=== PATIENT | male | born 1970 | race Caucasian/White ===

== ENCOUNTER 2017-06-22 23:57 | Emergency (ER) | payer SELFPAY ==
[~2017-06-22] VITALS: Ht 167.6 cm; Wt 68.0 kg
[2017-06-23] MEDS ORDERED: SODIUM CHLORIDE 0.9% 1,000 ML IV ONE (00:24)
[2017-06-23] MEDS ORDERED: MORPHINE SULFATE 4 MG/ML CPJ (NOT FOR IM USE) IV STA (00:24)
[2017-06-23] MEDS ORDERED: ONDANSETRON HCL 4MG/2ML VIAL IV STA (00:24)
[2017-06-23 01:07] LABS: HEMATOCRIT. 36.7 % (42.0-52.0); HEMOGLOBIN. 12.5 g/dL (14.0-18.0); MEAN CORPUSCULAR HEMOGLOBIN 33.1 pg (28.0-32.0); MEAN CORPUSCULAR VOLUME 97.4 fL (80.0-94.0); MEAN PLATELET VOLUME 8.4 fl (7.4-10.4); PLATELET 93 x1000/uL (130-400); RED BLOOD CELL COUNT 3.77 mill/uL (4.7-6.1); RED CELL DISTRIBUTION WIDTH 15.2 % (11.6-14.6)
[2017-06-23 01:18] LABS: INR 1.6; PARTIAL THROMBOPLASTIN TIME 38.6 sec (23.4-31.0); PROTHROMBIN TIME 16.2 sec (9.4-11.6)
[2017-06-23 01:19] LABS: CHLORIDE 104 mEq/L (98-107)
[2017-06-23 01:24] LABS: TROPONIN I < 0.02 ng/mL (0.00-0.04)
[2017-06-23] MEDS ORDERED: IOHEXOL-300 100 ML BOTTLE ONE (02:10)
[2017-06-23] MEDS ORDERED: LEVOFLOXACIN 750MG PREMIX 150 ML IV ONE (02:15)
[2017-06-23] MEDS ORDERED: SODIUM CHLORIDE 0.9% 1000ML BAG (SEPSIS BOLUS) IV ONE (02:15)
[2017-06-23] MEDS ORDERED: HYDROMORPHONE HCL/PF 2MG/ML CPJ IV ONE (03:00)
[2017-06-23 03:16] LABS: PLATELET ESTIMATE DECREASED
[2017-06-23] MEDS ORDERED: ALBUTEROL (0.083%) 2.5MG/3ML NEB HHN STA (07:24)
[2017-06-23 11:16] VITALS: BP 117/79
== END 2017-06-23 11:29 | disposition short-term general hospital (02) ==
LOC: ER 23:57
DX: S12.600A Unspecified displaced fracture of seventh cervical vertebra, initial encounter for closed fracture (principal); S27.321A Contusion of lung, unilateral, initial encounter; A41.9 Sepsis, unspecified organism; R65.20 Severe sepsis without septic shock; R07.81 Pleurodynia; M25.511 Pain in right shoulder; R51 Headache; J69.0 Pneumonitis due to inhalation of food and vomit; W11.XXXA Fall on and from ladder, initial encounter; Y93.89 Activity, other specified; Y92.89 Other specified places as the place of occurrence of the external cause; Y99.8 Other external cause status
CPT/HCPCS: 36415; 70450; 71045; 71260; 72070; 72100; 72125; 73030; 80053; 83605; 84484; 85025; 85610; 85730; 86850; 86900; 86901; 87040; 93005; 94640; 96361; 96365; 96375; 99291; J1170; J1956; J2270; J2405; J7030; J7611; Q9967; Z7610

== ENCOUNTER 2021-03-08 16:26 | Inpatient (IN) | payer MEDICAID, OTHER ==
[~2021-03-08] VITALS: Ht 170.2 cm; Wt 74.8 kg
[~2021-03-08 16:26] MED LIST: FOLI-43 PO; FURO-151 MT; SPIR100T5 MT; THIA100T72 PO
[2021-03-08 18:22] LABS: BASOPHILS % 1.2 % (0.0-2.0); EOSINOPHILS % 7.9 % (0.0-5.0); HEMATOCRIT. 31.3 % (42.0-52.0); HEMOGLOBIN. 10.5 g/dL (14.0-18.0); LYMPHOCYTES % 25.8 % (20.0-50.0); MEAN CORPUSCULAR HEMOGLOBIN 33.8 pg (28.0-32.0); MEAN PLATELET VOLUME 7.4 fl (7.4-10.4); MONOCYTES % 14.5 % (2.0-8.0); NEUTROPHILS % 50.6 % (40.0-76.0); PLATELET 190 x1000/uL (130-400); RED CELL DISTRIBUTION WIDTH 15.3 % (11.6-14.6)
[2021-03-08 18:29] LABS: CHLORIDE 108 mEq/L (98-107)
[2021-03-08 18:39] LABS: INR 1.3; PROTHROMBIN TIME 13.3 sec (9.6-11.0)
[2021-03-08] MEDS ORDERED: KETOROLAC 30MG/ML VIAL IV STA (19:24)
[2021-03-08] MEDS ORDERED: MORPHINE SULFATE 4 MG/ML CPJ (NOT FOR IM USE) IV ONE (23:00)
[2021-03-09 00:52] LABS: CLARITY URINE CLOUDY (CLEAR); COLOR URINE ORANGE (YELLOW); KETONES URINE NEGATIVE (NEGATIVE); LEUKOCYTE ESTERASE URINE 1+ (NEGATIVE); NITRITE URINE POSITIVE (NEGATIVE); OCCULT BLOOD URINE 3+ (NEGATIVE); PH URINE 5.5 (4.5-8.0); PROTEIN URINE 1+ (NEGATIVE); SPECIFIC GRAVITY URINE 1.037 (1.005-1.030)
[2021-03-09 10:00] VITALS: BP 127/89
[2021-03-09] MEDS ORDERED: ACETAMINOPHEN 325MG TABLET PO PRN (10:15)
[2021-03-09] MEDS ORDERED: CEFTRIAXONE 1 G PREMIX 50 ML IV SCH (10:15)
[2021-03-09] MEDS ORDERED: ONDANSETRON HCL 4MG/2ML INJ IV PRN (10:15)
[2021-03-09] MEDS ORDERED: LIDOCAINE HCL 1% 10 MG/ML 10ML VIAL ONE (10:49)
[2021-03-09] MEDS ORDERED: SODIUM BICARBONATE 4% (2.4MEQ) 5ML VIAL IV ONE (10:50)
[2021-03-09 13:00] VITALS: BP 102/62
[2021-03-09] MEDS: CEFTRIAXONE 1,000 MG in DEXTROSE 5% WATER 50 ML IV SCH (14:05)
[2021-03-09 16:00] VITALS: BP 104/64
[2021-03-09 20:00] VITALS: BP 100/56
[2021-03-10] VITALS (7 sets, daily range): BP systolic 104–120; BP diastolic 65–81
[2021-03-10] MEDS ORDERED: FURO-151 MT (11:46)
[2021-03-10] MEDS ORDERED: LEVO500T89 MT (11:47)
[2021-03-10] MEDS ORDERED: SPIR100T5 MT (11:47)
[2021-03-10] MEDS: CEFTRIAXONE 1,000 MG in DEXTROSE 5% WATER 50 ML IV SCH (12:52)
[2021-03-10 13:55] LABS: HEMATOCRIT. 33.3 % (42.0-52.0); HEMOGLOBIN. 11.1 g/dL (14.0-18.0); MEAN CORPUSCULAR HEMOGLOBIN 33.6 pg (28.0-32.0); MEAN CORPUSCULAR VOLUME 100.7 fL (80.0-94.0); MEAN PLATELET VOLUME 7.6 fl (7.4-10.4); PLATELET 163 x1000/uL (130-400); RED BLOOD CELL COUNT 3.31 mill/uL (4.7-6.1)
[2021-03-10 14:01] LABS: CHLORIDE 107 mEq/L (98-107)
[2021-03-10 14:15] LABS: PLATELET ESTIMATE NORMAL
[2021-03-11] VITALS: BP 103/61
[2021-03-11 04:00] VITALS: BP 115/80
[2021-03-11 08:00] VITALS: BP 117/76
== END 2021-03-11 10:28 | disposition home or self-care (01) | DRG 720 ==
LOC: ER 16:26 → 6EST 21:19 → ENRESERV 03-09 07:39
PROVIDERS: ADMIT Internal Medicine; ATTEND Internal Medicine
PROC: 0W9G3ZZ Drainage of Peritoneal Cavity, Percutaneous Approach (ICD-10-PCS; principal; 2021-03-09)
DX: A41.9 Sepsis, unspecified organism (principal); E43 Unspecified severe protein-calorie malnutrition; R18.8 Other ascites; N39.0 Urinary tract infection, site not specified; E87.8 Other disorders of electrolyte and fluid balance, not elsewhere classified; I50.9 Heart failure, unspecified; E87.1 Hypo-osmolality and hyponatremia; E11.9 Type 2 diabetes mellitus without complications; D64.9 Anemia, unspecified; K74.60 Unspecified cirrhosis of liver; Z20.822 Contact with and (suspected) exposure to COVID-19; Z68.25 Body mass index [BMI] 25.0-25.9, adult; Z79.899 Other long term (current) drug therapy
CPT/HCPCS: 36415; 49083; 74176; 80048; 80053; 81003; 85025; 87426; 93005; 99285; J0696; J2270; J3490; J7060

== ENCOUNTER 2021-06-13 17:59 | Inpatient (IN) | payer OTHER ==
[~2021-06-13] VITALS: Ht 167.6 cm; Wt 64.4 kg
[2021-06-13] MEDS ORDERED: PIPERACILLIN/TAZ 3.375G PREMIX 50 ML IV ONE (19:45)
[2021-06-13] MEDS ORDERED: SODIUM CHLORIDE 0.9% 1000ML BAG (SEPSIS BOLUS) IV ONE (19:45)
[2021-06-13] MEDS ORDERED: VANCOMYCIN 1G PREMIX 200 ML IV ONE (19:45)
[2021-06-13 19:58] LABS: INR 1.8; PROTHROMBIN TIME 18.6 sec (9.6-11.0)
[2021-06-13 20:05] LABS: CHLORIDE 95 mEq/L (98-107)
[2021-06-13 20:09] LABS: ETHANOL BLOOD < 10 mg/dL
[2021-06-13 20:13] LABS: HEMATOCRIT. 34.1 % (42.0-52.0); HEMOGLOBIN. 11.5 g/dL (14.0-18.0); MEAN CORPUSCULAR HEMOGLOBIN 30.5 pg (28.0-32.0); MEAN CORPUSCULAR VOLUME 90.4 fL (80.0-94.0); MEAN PLATELET VOLUME 8.1 fl (7.4-10.4); PLATELET 191 x1000/uL (130-400); RED BLOOD CELL COUNT 3.77 mill/uL (4.7-6.1); RED CELL DISTRIBUTION WIDTH 17.9 % (11.6-14.6)
[2021-06-13] MEDS ORDERED: LORAZEPAM 2MG/ML CPJ IV ONE (20:45)
[2021-06-13] MEDS ORDERED: HALOPERIDOL LACTATE 5MG/ML VIAL IM ONE (21:15)
[2021-06-13] MEDS ORDERED: LACTULOSE 300 ML in WATER FOR IRRIGATION,STERILE 700 ML IR ONE (21:15)
[2021-06-13] MEDS ORDERED: DIPHENHYDRAMINE 50MG/ML VIAL IV ONE (21:15)
[2021-06-13 21:52] LABS: PLATELET ESTIMATE NORMAL
[2021-06-13] MEDS ORDERED: NOREPINEPHRINE 8 MG in DEXT 5% WATER 242 ML IV PRN (22:45)
[2021-06-13] MEDS ORDERED: IOHEXOL-300 100 ML BOTTLE ONE (22:45)
[2021-06-13] MEDS ORDERED: ALBUMIN HUMAN 12.5GM/50ML (25%) IV ONE (23:30)
[2021-06-14] VITALS (13 sets, daily range): BP systolic 61–106; BP diastolic 43–77
[2021-06-14] MEDS ORDERED: VANCOMYCIN 1GM PMX (XELLIA) 200 ML IV NR (00:15)
[2021-06-14] MEDS ORDERED: NOREPINEPHRINE 8 MG in DEXT 5% WATER 242 ML IV PRN (00:15)
[2021-06-14] MEDS ORDERED: VECURONIUM BROMIDE 10 MG/VIAL IV ONE (08:03)
[2021-06-14] MEDS ORDERED: ETOMIDATE 2MG/ML 10ML VIAL IV ONE ×2 (08:03→14:45)
[2021-06-14] MEDS ORDERED: ONDANSETRON HCL 4MG/2ML INJ IV PRN (08:45)
[2021-06-14] MEDS ORDERED: ACETAMINOPHEN 325MG TABLET PO PRN (08:45)
[2021-06-14] MEDS ORDERED: SODIUM CHLORIDE 0.9% 1,000 ML IV SCH (08:45)
[2021-06-14] MEDS ORDERED: NOREPINEPHRINE 8MG/250ML PMX 250 ML IV PRN (09:15)
[2021-06-14] MEDS ORDERED: SODIUM BICARBONATE 4% (2.4MEQ) 5ML VIAL IV ONE (09:51)
[2021-06-14] MEDS ORDERED: LIDOCAINE HCL 1% 20ML VIAL (Pyxis) INJ ONE (09:51)
[2021-06-14] MEDS ORDERED: DEXTROSE 50% WATER 50ML SYRINGE IV ONE (09:57)
[2021-06-14] MEDS ORDERED: DEXTROSE 50% WATER 50ML SYRINGE IV PRN ×2 (10:00)
[2021-06-14] MEDS: DEXT 5%/0.9% NACL 1,000 ML IV SCH (10:00)
[2021-06-14 10:24] LABS: BG BASE EXCESS -4.5 mmol/L (-2.0-2.0); BG CARBOXYHEMOGLOBIN 0.3 % (0.5-1.5); BG DEOXYHEMOGLOBIN 0.6 % (0.0-5.0); BG HCO3 ACT 18.1 mmol/L (22.0-26.0); BG METHEMOGLOBIN 0.4 % (0.0-1.5); BG OXYGEN SATURATION 99.4 % (92.0-98.5); BG OXYHEMOGLOBIN 98.7 % (94.0-97.0); BG PO2 245.6 mmHg (75.0-100.0); BG SAMPLE SITE RIGHT RADIAL; BG TOTAL HEMOGLOBIN 11.2 g/dL (12.0-18.0); BG VENT MODE MASK - NRB
[2021-06-14] MEDS ORDERED: LACTULOSE 300 ML in WATER FOR IRRIGATION,STERILE 700 ML IR SCH (10:30)
[2021-06-14] MEDS: BLOOD SUGAR DIAGNOSTIC STRIP TEST SCH ×2 (11:30→21:00)
[2021-06-14] MEDS ORDERED: LACTULOSE 20G/30ML UDC PO SCH (14:00)
[2021-06-14] MEDS ORDERED: FENTANYL CITRATE/PF 2,500 MCG in SODIUM CHLORIDE 0.9% 200 ML IV PRN (14:45)
[2021-06-14] MEDS ORDERED: ROCURONIUM BROMIDE 10MG/ML VIAL 5ML IV NR (14:45)
[2021-06-14] MEDS ORDERED: SODIUM CHLORIDE 0.9% 1,000 ML IV ONE (14:45)
[2021-06-14] MEDS ORDERED: FENTANYL 2500MCG/250ML PMX 250 ML IV PRN (14:51)
[2021-06-14 15:44] LABS: BG BASE EXCESS -7.7 mmol/L (-2.0-2.0); BG DEOXYHEMOGLOBIN 0.3 % (0.0-5.0); BG HCO3 ACT 17.3 mmol/L (22.0-26.0); BG METHEMOGLOBIN 0.4 % (0.0-1.5); BG OXYGEN SATURATION 99.7 % (92.0-98.5); BG OXYHEMOGLOBIN 99.3 % (94.0-97.0); BG PCO2 33.6 mmHg (35.0-45.0); BG PO2 361.3 mmHg (75.0-100.0); BG SAMPLE SITE RIGHT RADIAL; BG TOTAL HEMOGLOBIN 12.4 g/dL (12.0-18.0); BG VENT MODE VENT - AC
[2021-06-14] MEDS: PIPERACILLIN/TAZOBACTAM 3.375 G in DEXTROSE 5% WATER 50 ML IV SCH ×2 (16:00→22:00)
[2021-06-14] MEDS: PROPOFOL 10MG/ML 100ML 100 ML IV PRN (16:24)
[2021-06-14] MEDS: NOREPINEPHRINE 8 MG in DEXT 5% WATER 242 ML IV PRN (23:48)
[2021-06-14] MEDS: LACTULOSE 20G/30ML UDC PO SCH (23:53)
[2021-06-14] MEDS: RIFAXIMIN 550 MG TABLET PO SCH (23:53)
[2021-06-15] VITALS (70 sets, daily range): BP systolic 62–147; BP diastolic 40–95
[2021-06-15] MEDS ORDERED: PROPOFOL 10MG/ML 100ML 100 ML IV PRN
[2021-06-15] MEDS ORDERED: FENTANYL 2500MCG/250ML PMX 250 ML IV PRN
[2021-06-15 00:58] LABS: BG FRACTION INSPIRED OXYGEN 60; BG SAMPLE SITE RIGHT BRACHIAL; BG VENT MODE VENT - AC
[2021-06-15 01:03] LABS: BG BASE EXCESS -7.2 mmol/L (-2.0-2.0); BG HCO3 ACT 17.2 mmol/L (22.0-26.0); BG PCO2 31.4 mmHg (35.0-45.0); BG PH 7.357 (7.350-7.450); BG PO2 134.8 mmHg (75.0-100.0)
[2021-06-15 01:04] LABS: BG CARBOXYHEMOGLOBIN 0.3 % (0.5-1.5); BG METHEMOGLOBIN 0.4 % (0.0-1.5); BG OXYGEN SATURATION 98.5 % (92.0-98.5); BG OXYHEMOGLOBIN 97.8 % (94.0-97.0); BG TOTAL HEMOGLOBIN 12.3 g/dL (12.0-18.0)
[2021-06-15 01:05] LABS: BG DEOXYHEMOGLOBIN 1.5 % (0.0-5.0)
[2021-06-15] MEDS: NOREPINEPHRINE 8 MG in DEXT 5% WATER 242 ML IV PRN ×3 (02:40→08:30)
[2021-06-15] MEDS: PROPOFOL 10MG/ML 100ML 100 ML IV PRN (03:50)
[2021-06-15 05:10] LABS: CLARITY URINE CLEAR (CLEAR); COLOR URINE DARK YELLOW (YELLOW); KETONES URINE NEGATIVE (NEGATIVE); LEUKOCYTE ESTERASE URINE 1+ (NEGATIVE); NITRITE URINE NEGATIVE (NEGATIVE); OCCULT BLOOD URINE 2+ (NEGATIVE); PROTEIN URINE NEGATIVE (NEGATIVE); SPECIFIC GRAVITY URINE 1.035 (1.005-1.030)
[2021-06-15 05:48] LABS: HEMATOCRIT. 34.1 % (42.0-52.0); HEMOGLOBIN. 11.3 g/dL (14.0-18.0); MEAN CORPUSCULAR HEMOGLOBIN 30.7 pg (28.0-32.0); MEAN CORPUSCULAR VOLUME 92.6 fL (80.0-94.0); MEAN PLATELET VOLUME 7.4 fl (7.4-10.4); PLATELET 198 x1000/uL (130-400); RED BLOOD CELL COUNT 3.68 mill/uL (4.7-6.1); RED CELL DISTRIBUTION WIDTH 17.7 % (11.6-14.6)
[2021-06-15] MEDS: DEXT 5%/0.9% NACL 1,000 ML IV SCH (06:00)
[2021-06-15] MEDS: LACTULOSE 20G/30ML UDC PO SCH ×3 (06:22→22:12)
[2021-06-15] MEDS: BLOOD SUGAR DIAGNOSTIC STRIP TEST SCH ×4 (06:27→20:01)
[2021-06-15 08:02] LABS: PLATELET ESTIMATE NORMAL
[2021-06-15] MEDS: PIPERACILLIN/TAZOBACTAM 3.375 G in DEXTROSE 5% WATER 50 ML IV SCH ×3 (08:30→22:12)
[2021-06-15 08:58] LABS: BG BASE EXCESS -6.5 mmol/L (-2.0-2.0); BG CARBOXYHEMOGLOBIN 0.6 % (0.5-1.5); BG DEOXYHEMOGLOBIN 1.2 % (0.0-5.0); BG METHEMOGLOBIN 0.4 % (0.0-1.5); BG OXYGEN SATURATION 98.8 % (92.0-98.5); BG OXYHEMOGLOBIN 97.8 % (94.0-97.0); BG PCO2 32.9 mmHg (35.0-45.0); BG PH 7.357 (7.350-7.450); BG PO2 133.6 mmHg (75.0-100.0); BG SAMPLE SITE RIGHT BRACHIAL; BG TOTAL HEMOGLOBIN 12.5 g/dL (12.0-18.0); BG VENT MODE VENT - AC
[2021-06-15] MEDS ORDERED: PHENYLEPHRINE 50 MG in DEXT 5% WATER 245 ML IV PRN (09:00)
[2021-06-15] MEDS: RIFAXIMIN 550 MG TABLET PO SCH ×2 (09:19→20:01)
[2021-06-15] MEDS: NOREPINEPHRINE 32 MG in DEXT 5% WATER 218 ML IV PRN ×2 (11:22→22:23)
[2021-06-15] MEDS ORDERED: VANCOMYCIN 1250MG in DEXTROSE 5% WATER 250ML IV NR (12:00)
[2021-06-15] MEDS ORDERED: VANCOMYCIN 1.25GM PMX (XELLIA) 250 ML IV NR (12:00)
[2021-06-15] MEDS: FOLIC ACID 1MG TABLET PO SCH (14:22)
[2021-06-16] VITALS (94 sets, daily range): BP systolic 73–161; BP diastolic 27–107
[2021-06-16] MEDS: DEXT 5%/0.9% NACL 1,000 ML IV SCH ×2 (02:31→22:00)
[2021-06-16 06:15] LABS: CHLORIDE 102 mEq/L (98-107)
[2021-06-16] MEDS: BLOOD SUGAR DIAGNOSTIC STRIP TEST SCH ×4 (07:17→21:13)
[2021-06-16] MEDS: LACTULOSE 20G/30ML UDC PO SCH ×3 (07:17→21:14)
[2021-06-16] MEDS: PIPERACILLIN/TAZOBACTAM 3.375 G in DEXTROSE 5% WATER 50 ML IV SCH ×3 (07:17→21:15)
[2021-06-16] MEDS: RIFAXIMIN 550 MG TABLET PO SCH ×2 (08:10→21:14)
[2021-06-16] MEDS: THIAMINE HCL 100 MG/1 ML 2ML VIAL IM SCH (08:10)
[2021-06-16] MEDS: FOLIC ACID 1MG TABLET PO SCH (08:10)
[2021-06-16] MEDS: NOREPINEPHRINE 32 MG in DEXT 5% WATER 218 ML IV PRN ×2 (08:16→18:31)
[2021-06-16] MEDS ORDERED: FOLIC ACID 1MG TABLET PO SCH (09:00)
[2021-06-16 09:20] LABS: BG BASE EXCESS -4.1 mmol/L (-2.0-2.0); BG CARBOXYHEMOGLOBIN 0.3 % (0.5-1.5); BG FRACTION INSPIRED OXYGEN 50; BG HCO3 ACT 19.2 mmol/L (22.0-26.0); BG METHEMOGLOBIN 0.3 % (0.0-1.5); BG OXYHEMOGLOBIN 97.4 % (94.0-97.0); BG PCO2 30.1 mmHg (35.0-45.0); BG PH 7.422 (7.350-7.450); BG SAMPLE SITE LEFT BRACHIAL; BG TOTAL HEMOGLOBIN 12.8 g/dL (12.0-18.0); BG VENT MODE VENT - AC
[2021-06-16] MEDS ORDERED: VANCOMYCIN 1.25GM PMX (XELLIA) 250 ML IV SCH (12:00)
[2021-06-16] MEDS ORDERED: PROPOFOL 10MG/ML 100ML 100 ML IV PRN (12:30)
[2021-06-17] VITALS (97 sets, daily range): BP systolic 73–132; BP diastolic 44–88
[2021-06-17] MEDS: CEFAZOLIN 2,000 MG in DEXT 5% WATER 100 ML IV SCH ×4 (00:49→21:07)
[2021-06-17] MEDS: BLOOD SUGAR DIAGNOSTIC STRIP TEST SCH ×4 (05:43→20:15)
[2021-06-17] MEDS: LACTULOSE 20G/30ML UDC PO SCH ×3 (05:44→21:07)
[2021-06-17] MEDS: NOREPINEPHRINE 32 MG in DEXT 5% WATER 218 ML IV PRN ×2 (05:45→21:40)
[2021-06-17 06:12] LABS: CHLORIDE 104 mEq/L (98-107)
[2021-06-17 07:54] LABS: BG BASE EXCESS -1.2 mmol/L (-2.0-2.0); BG CARBOXYHEMOGLOBIN 0.4 % (0.5-1.5); BG DEOXYHEMOGLOBIN 1.3 % (0.0-5.0); BG HCO3 ACT 22.7 mmol/L (22.0-26.0); BG METHEMOGLOBIN 0.2 % (0.0-1.5); BG OXYGEN SATURATION 98.7 % (92.0-98.5); BG OXYHEMOGLOBIN 98.1 % (94.0-97.0); BG PCO2 35.2 mmHg (35.0-45.0); BG PH 7.427 (7.350-7.450); BG SAMPLE SITE RIGHT BRACHIAL; BG TOTAL HEMOGLOBIN 12.6 g/dL (12.0-18.0); BG VENT MODE VENT - AC
[2021-06-17] MEDS: RIFAXIMIN 550 MG TABLET PO SCH ×2 (08:41→21:07)
[2021-06-17] MEDS: FOLIC ACID 1MG TABLET PO SCH (08:41)
[2021-06-17] MEDS: THIAMINE HCL 100 MG/1 ML 2ML VIAL IM SCH (08:51)
[2021-06-17 09:33] LABS: HEMATOCRIT. 37.1 % (42.0-52.0); HEMOGLOBIN. 12.4 g/dL (14.0-18.0); MEAN CORPUSCULAR HEMOGLOBIN 30.7 pg (28.0-32.0); MEAN CORPUSCULAR VOLUME 91.9 fL (80.0-94.0); MEAN PLATELET VOLUME 7.3 fl (7.4-10.4); RED BLOOD CELL COUNT 4.04 mill/uL (4.7-6.1); RED CELL DISTRIBUTION WIDTH 17.1 % (11.6-14.6)
[2021-06-17 09:43] LABS: PLATELET 51 x1000/uL (130-400)
[2021-06-17 12:58] LABS: PLATELET ESTIMATE DECREASED
[2021-06-17] MEDS ORDERED: LIDOCAINE HCL 1% 10 MG/ML 10ML VIAL ONE (13:54)
[2021-06-17] MEDS: PANTOPRAZOLE SODIUM 40 MG/VIAL IV SCH (16:55)
[2021-06-17] MEDS: DEXT 5%/0.9% NACL 1,000 ML IV SCH ×2 (18:00→23:32)
[2021-06-17] MEDS: FENTANYL CITRATE 2,500 MCG in SODIUM CHLORIDE 0.9% 200 ML IV PRN (18:26)
[2021-06-18] VITALS (79 sets, daily range): BP systolic 74–129; BP diastolic 50–92
[2021-06-18] MEDS: LACTULOSE 20G/30ML UDC PO SCH ×3 (05:10→22:34)
[2021-06-18] MEDS: CEFAZOLIN 2,000 MG in DEXT 5% WATER 100 ML IV SCH ×3 (05:10→22:33)
[2021-06-18 05:25] LABS: HEMATOCRIT. 38.8 % (42.0-52.0); HEMOGLOBIN. 13.3 g/dL (14.0-18.0); MEAN CORPUSCULAR HEMOGLOBIN 31.3 pg (28.0-32.0); MEAN CORPUSCULAR VOLUME 91.5 fL (80.0-94.0); RED BLOOD CELL COUNT 4.24 mill/uL (4.7-6.1); RED CELL DISTRIBUTION WIDTH 17.1 % (11.6-14.6)
[2021-06-18 05:39] LABS: CHLORIDE 102 mEq/L (98-107)
[2021-06-18] MEDS: BLOOD SUGAR DIAGNOSTIC STRIP TEST SCH ×4 (06:31→21:00)
[2021-06-18] MEDS: RIFAXIMIN 550 MG TABLET PO SCH ×2 (08:42→22:33)
[2021-06-18] MEDS: FOLIC ACID 1MG TABLET PO SCH (08:42)
[2021-06-18] MEDS: THIAMINE HCL 100 MG/1 ML 2ML VIAL IM SCH (08:42)
[2021-06-18] MEDS: PANTOPRAZOLE SODIUM 40 MG/VIAL IV SCH (08:42)
[2021-06-18 09:40] LABS: BG BASE EXCESS -1.5 mmol/L (-2.0-2.0); BG CARBOXYHEMOGLOBIN 0.8 % (0.5-1.5); BG DEOXYHEMOGLOBIN 2.7 % (0.0-5.0); BG FRACTION INSPIRED OXYGEN 35; BG HCO3 ACT 22.8 mmol/L (22.0-26.0); BG METHEMOGLOBIN 0.2 % (0.0-1.5); BG OXYGEN SATURATION 97.3 % (92.0-98.5); BG OXYHEMOGLOBIN 96.3 % (94.0-97.0); BG PCO2 37.2 mmHg (35.0-45.0); BG PH 7.406 (7.350-7.450); BG PO2 91.7 mmHg (75.0-100.0); BG SAMPLE SITE RIGHT RADIAL; BG TOTAL HEMOGLOBIN 13.4 g/dL (12.0-18.0); BG TOTAL RESPIRATORY RATE 18 b/min; BG VENT MODE VENT - AC
[2021-06-18 11:21] LABS: PLATELET 40 x1000/uL (130-400)
[2021-06-18 11:25] LABS: PLATELET ESTIMATE MARKEDLY DECREASED
[2021-06-18] MEDS: FENTANYL CITRATE 2,500 MCG in SODIUM CHLORIDE 0.9% 200 ML IV PRN (13:05)
[2021-06-18] MEDS ORDERED: LACTULOSE 300 ML in WATER FOR IRRIGATION,STERILE 700 ML IR SCH (14:00)
[2021-06-18] MEDS: NOREPINEPHRINE 32 MG in DEXT 5% WATER 218 ML IV PRN (14:05)
[2021-06-19] VITALS (51 sets, daily range): BP systolic 57–211; BP diastolic 36–164
[2021-06-19] MEDS: FENTANYL CITRATE 2,500 MCG in SODIUM CHLORIDE 0.9% 200 ML IV PRN (00:26)
[2021-06-19] MEDS: PHENYLEPHRINE 100 MG in DEXT 5% WATER 240 ML IV PRN ×6 (05:17→22:03)
[2021-06-19] MEDS: NOREPINEPHRINE 32 MG in DEXT 5% WATER 218 ML IV PRN ×3 (05:19→20:50)
[2021-06-19] MEDS: VASOPRESSIN 20 UNIT in SODIUM CHLORIDE 0.9% 99 ML IV PRN ×3 (05:39→18:57)
[2021-06-19] MEDS: LACTULOSE 20G/30ML UDC PO SCH ×3 (06:00→22:00)
[2021-06-19] MEDS: BLOOD SUGAR DIAGNOSTIC STRIP TEST SCH ×4 (06:30→21:00)
[2021-06-19 06:33] LABS: BG BASE EXCESS -7.4 mmol/L (-2.0-2.0); BG CARBOXYHEMOGLOBIN 0.3 % (0.5-1.5); BG FRACTION INSPIRED OXYGEN 100; BG HCO3 ACT 18.2 mmol/L (22.0-26.0); BG METHEMOGLOBIN 0.2 % (0.0-1.5); BG OXYHEMOGLOBIN 95.5 % (94.0-97.0); BG PCO2 37.3 mmHg (35.0-45.0); BG PH 7.306 (7.350-7.450); BG SAMPLE SITE RIGHT BRACHIAL; BG TOTAL HEMOGLOBIN 14.7 g/dL (12.0-18.0); BG VENT MODE VENT - AC
[2021-06-19] MEDS ORDERED: LIDOCAINE HCL 1% 10 MG/ML 10ML VIAL ONE (08:02)
[2021-06-19] MEDS: PANTOPRAZOLE SODIUM 40 MG/VIAL IV SCH (08:34)
[2021-06-19] MEDS: RIFAXIMIN 550 MG TABLET PO SCH ×2 (08:34→21:00)
[2021-06-19] MEDS: FOLIC ACID 1MG TABLET PO SCH (08:39)
[2021-06-19] MEDS: THIAMINE HCL 100 MG/1 ML 2ML VIAL IM SCH (08:39)
[2021-06-19] MEDS: CEFAZOLIN 2,000 MG in DEXT 5% WATER 100 ML IV SCH ×2 (13:26→22:02)
[2021-06-19 14:08] LABS: HEMATOCRIT. 39.1 % (42.0-52.0); HEMOGLOBIN. 12.4 g/dL (14.0-18.0); MEAN CORPUSCULAR HEMOGLOBIN 30.3 pg (28.0-32.0); MEAN CORPUSCULAR VOLUME 95.4 fL (80.0-94.0); MEAN PLATELET VOLUME 10.5 fl (7.4-10.4); RED CELL DISTRIBUTION WIDTH 17.8 % (11.6-14.6)
[2021-06-19 14:14] LABS: PLATELET 27 x1000/uL (130-400)
[2021-06-19 14:43] LABS: PLATELET ESTIMATE MARKEDLY DECREASED
[2021-06-20] VITALS (24 sets, daily range): BP systolic 33–90; BP diastolic 16–51
[2021-06-20] MEDS: PHENYLEPHRINE 100 MG in DEXT 5% WATER 240 ML IV PRN ×2 (03:44→08:13)
[2021-06-20] MEDS ORDERED: LORAZEPAM 2MG/ML CPJ IV PRN ×2 (03:45→04:30)
[2021-06-20] MEDS: NOREPINEPHRINE 32 MG in DEXT 5% WATER 218 ML IV PRN ×2 (03:55→11:13)
[2021-06-20] MEDS: VASOPRESSIN 20 UNIT in SODIUM CHLORIDE 0.9% 99 ML IV PRN ×2 (04:16→11:14)
[2021-06-20] MEDS: LACTULOSE 20G/30ML UDC PO SCH (06:00)
[2021-06-20] MEDS: CEFAZOLIN 2,000 MG in DEXT 5% WATER 100 ML IV SCH ×2 (06:26→13:07)
[2021-06-20] MEDS: BLOOD SUGAR DIAGNOSTIC STRIP TEST SCH ×2 (06:26→12:09)
[2021-06-20] MEDS: DEXT 5%/0.9% NACL 1,000 ML IV SCH (06:27)
[2021-06-20] MEDS ORDERED: DEXTROSE 50% WATER 50ML SYRINGE IV ONE (06:42)
[2021-06-20] MEDS: FOLIC ACID 1MG TABLET PO SCH (08:33)
[2021-06-20] MEDS: PANTOPRAZOLE SODIUM 40 MG/VIAL IV SCH (08:33)
[2021-06-20] MEDS: THIAMINE HCL 100 MG/1 ML 2ML VIAL IM SCH (08:34)
[2021-06-20] MEDS ORDERED: CEFAZOLIN 2,000 MG in DEXT 5% WATER 100 ML IV SCH (21:00)
== END 2021-06-20 18:29 | DRG 710 ==
LOC: ER 17:59 → MICUSO 21:10 → EDBEDREQTM 21:15 → EDBEDREQ 21:15 → EDBEDREQSVC 21:15 → EDBEDREQTM 23:00 → MICUSO 06-14 20:30
PROVIDERS: ADMIT Internal Medicine; ATTEND Internal Medicine
PROC: 0BH17EZ Insertion of Endotracheal Airway into Trachea, Via Natural or Artificial Opening (ICD-10-PCS; principal; 2021-06-14)
PROC: 5A1955Z Respiratory Ventilation, Greater than 96 Consecutive Hours (ICD-10-PCS; 2021-06-14)
PROC: 02HV33Z Insertion of Infusion Device into Superior Vena Cava, Percutaneous Approach (ICD-10-PCS; 2021-06-17)
PROC: B548ZZA Ultrasonography of Superior Vena Cava, Guidance (ICD-10-PCS; 2021-06-17)
PROC: 0WPG30Z Removal of Drainage Device from Peritoneal Cavity, Percutaneous Approach (ICD-10-PCS; 2021-06-19)
DX: A41.01 Sepsis due to Methicillin susceptible Staphylococcus aureus (principal); J96.01 Acute respiratory failure with hypoxia; R65.21 Severe sepsis with septic shock; J69.0 Pneumonitis due to inhalation of food and vomit; G93.41 Metabolic encephalopathy; E43 Unspecified severe protein-calorie malnutrition; R64 Cachexia; K65.9 Peritonitis, unspecified; A41.89 Other specified sepsis; D68.9 Coagulation defect, unspecified; R18.8 Other ascites; D69.6 Thrombocytopenia, unspecified; E11.649 Type 2 diabetes mellitus with hypoglycemia without coma; D50.9 Iron deficiency anemia, unspecified; D63.8 Anemia in other chronic diseases classified elsewhere; E87.1 Hypo-osmolality and hyponatremia; E87.5 Hyperkalemia; E87.8 Other disorders of electrolyte and fluid balance, not elsewhere classified; K80.20 Calculus of gallbladder without cholecystitis without obstruction; E53.8 Deficiency of other specified B group vitamins; F10.10 Alcohol abuse, uncomplicated; I11.0 Hypertensive heart disease with heart failure; I50.9 Heart failure, unspecified; Z60.2 Problems related to living alone; Z66 Do not resuscitate; K76.6 Portal hypertension; K74.60 Unspecified cirrhosis of liver; J44.9 Chronic obstructive pulmonary disease, unspecified; K72.90 Hepatic failure, unspecified without coma; K56.7 Ileus, unspecified; Z20.822 Contact with and (suspected) exposure to COVID-19; L89.159 Pressure ulcer of sacral region, unspecified stage; Z78.1 Physical restraint status; Z68.22 Body mass index [BMI] 22.0-22.9, adult
CPT/HCPCS: 36415; 36600; 47537; 71045; 73610; 74018; 74177; 76705; 76937; 80048; 80053; 80076; 80202; 80320; 81003; 82140; 82375; 82607; 82728; 82746; 82805; 82962; 83036; 83540; 83550; 83605; 84134; 84145; 84478; 84484; 85025; 85044; 87070; 87077; 87186; 87426; 93005; 93306; 93923; 94002; 94003; 99291; A6261; C1725; C9113; J0690; J1200; J1630; J2060; J2370; J2405; J2543; J2704; J3010; J3370; J3411; J3490; J7030; J7040; J7042; J7050; J7060; P9047; Q9967; A4315; G0480